=== PATIENT | female | born 1995 | race Two or more races ===

== ENCOUNTER 2022-09-04 13:41 | Outpatient (CLI) | payer OTHER ==
[~2022-09-04] VITALS: Ht 152.4 cm; Wt 63.5 kg
[2022-09-04] MEDS ORDERED: PRENATABS RX T1 EACH PO (13:51)
== END 2022-09-04 18:54 | disposition left against medical advice (07) ==
LOC: LDR 13:41 → OBS/DEL 13:41 → LDR 18:54 → EDSTATUS 09-05 11:40
PROVIDERS: ATTEND Obstetrics & Gynecology
DX: O47.03 False labor before 37 completed weeks of gestation, third trimester (principal); O34.13 Maternal care for benign tumor of corpus uteri, third trimester; Z3A.30 30 weeks gestation of pregnancy; Z20.822 Contact with and (suspected) exposure to COVID-19